=== PATIENT | male | born 2000 | race Caucasian/White ===

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

== ENCOUNTER 2023-11-17 05:12 | Emergency (ER) | payer SELFPAY ==
[~2023-11-17] VITALS: Ht 185.4 cm; Wt 93.0 kg
[2023-11-17 05:14] VITALS: BP 123/98
== END 2023-11-17 05:40 | disposition home or self-care (01) ==
LOC: ER 05:12
DX: F10.129 Alcohol abuse with intoxication, unspecified (principal); Z87.891 Personal history of nicotine dependence
CPT/HCPCS: 99284